=== PATIENT | male | born 1980 | race Caucasian/White ===

== ENCOUNTER 2025-01-16 17:09 | Inpatient (IN) | payer OTHER, BC ==
[~2025-01-16] VITALS: Ht 180.3 cm; Wt 76.2 kg
[2025-01-16] MEDS: ONDANSETRON HCL 4MG/2ML INJ IV ONE (18:04)
[2025-01-16] MEDS: SODIUM CHLORIDE 0.9% 1,000 ML IV ONE (18:04)
[2025-01-16] MEDS: MORPHINE SULFATE 4 MG/ML INJ (FOR IV/IM USE) IV ONE (18:05)
[2025-01-16 18:23] LABS: BASOPHILS % 0.5 % (0.0-2.0); HEMATOCRIT. 35.9 % (42.0-52.0); HEMOGLOBIN. 12.1 g/dL (14.0-18.0); LYMPHOCYTES % 15.8 % (20.0-50.0); MEAN CORPUSCULAR HEMOGLOBIN 29.9 pg (28.0-32.0); MEAN CORPUSCULAR HGB CONC 33.7 g/dL (31.0-37.0); MEAN CORPUSCULAR VOLUME 88.7 fL (80.0-94.0); NEUTROPHILS % 67.7 % (40.0-76.0); PLATELET 460 x1000/uL (130-400); RED BLOOD CELL COUNT 4.05 mill/uL (4.7-6.1); RED CELL DISTRIBUTION WIDTH 12.7 % (11.6-14.6); WHITE BLOOD COUNT 9.1 x1000/uL (4.5-11.0)
[2025-01-16 18:30] LABS: CHLORIDE 104 mEq/L (98-107); POTASSIUM 3.4 mEq/L (3.5-5.1); SODIUM 141 mEq/L (136-145)
[2025-01-16 18:31] LABS: CARBON DIOXIDE 30 mEq/L (21-32)
[2025-01-16 18:32] LABS: CALCIUM 8.5 mg/dL (8.7-10.4)
[2025-01-16 18:36] LABS: GLUCOSE 110 mg/dL (70-105)
[2025-01-16 18:37] LABS: TROPONIN I HIGH SENSITIVITY 18 ng/L (3.0-53); UREA NITROGEN BLOOD 15 mg/dL (9-23)
[2025-01-16 18:38] LABS: ALANINE AMINOTRANSFERASE 30 IU/L (10-49); ALBUMIN 3.8 g/dL (3.2-4.8); ASPARTATE AMINOTRANSFERASE 26 IU/L (<34)
[2025-01-16 18:39] LABS: BILIRUBIN TOTAL 0.2 mg/dL (0.1-1.0); PROTEIN TOTAL 6.3 g/dL (6.0-8.3)
[2025-01-16] MEDS: AMOXICILLIN/POTASSIUM CLAVULANATE 875/125MG TAB PO ONE (20:18)
[2025-01-16] MEDS ORDERED: HYDROMORPHONE HCL/PF 2MG/ML INJ IV ONE (20:30)
[2025-01-16 21:09] LABS: PARTIAL THROMBOPLASTIN TIME 26.8 sec (23.4-31.0); PROTHROMBIN TIME 10.7 sec (9.6-11.0)
[2025-01-16] MEDS ORDERED: ACETAMINOPHEN 325MG TABLET PO PRN ×2 (22:00)
[2025-01-16] MEDS ORDERED: DOCUSATE SODIUM 100MG CAPSULE PO PRN (22:00)
[2025-01-16] MEDS ORDERED: IPRATROPIUM/ALBUTEROL 0.5-3(2.5)MG/3ML NEB HHN PRN (22:00)
[2025-01-16] MEDS ORDERED: CLONIDINE 0.1MG TABLET PO PRN (22:00)
[2025-01-16] MEDS ORDERED: ONDANSETRON HCL 4MG/2ML INJ IV PRN (22:00)
[2025-01-16] MEDS: DOXYCYCLINE HYCLATE 100MG CAPSULE PO ONE (22:13)
[2025-01-16] MEDS: HYDROMORPHONE HCL/PF 1MG/ML INJ IV SCH (22:13)
[2025-01-16] MEDS ORDERED: NALOXONE HCL 0.4MG/ML VIAL IV PRN (22:15)
[2025-01-16] MEDS ORDERED: IOHEXOL-300 100 ML BOTTLE ONE (23:20)
[2025-01-16] MEDS: SODIUM CHLORIDE 0.9% 1,000 ML IV SCH (23:27)
[2025-01-16 23:35] VITALS: BP 113/74; PULSE 91; RESP 19; TEMP 36.5
[2025-01-17 01:23] LABS: CREATINE KINASE 342 IU/L (46-171)
[2025-01-17] MEDS: POTASSIUM CHLORIDE 20MEQ/PACKET PO NR (02:30)
[2025-01-17 05:45] LABS: CHLORIDE 105 mEq/L (98-107); POTASSIUM 4.2 mEq/L (3.5-5.1); SODIUM 138 mEq/L (136-145)
[2025-01-17 05:46] LABS: CALCIUM 8.2 mg/dL (8.7-10.4); CARBON DIOXIDE 28 mEq/L (21-32)
[2025-01-17 05:51] LABS: CREATININE 0.8 mg/dL (0.6-1.3); GLUCOSE 103 mg/dL (70-105); TRIGLYCERIDE 151 mg/dL (0-150); UREA NITROGEN BLOOD 14 mg/dL (9-23)
[2025-01-17 05:52] LABS: BASOPHILS % 0.6 % (0.0-2.0); EOSINOPHILS % 5.9 % (0.0-5.0); HEMATOCRIT. 34.9 % (42.0-52.0); HEMOGLOBIN. 11.7 g/dL (14.0-18.0); LDL CHOLESTEROL 78 mg/dL (5-100); LYMPHOCYTES % 19.1 % (20.0-50.0); MEAN CORPUSCULAR HEMOGLOBIN 30.2 pg (28.0-32.0); MEAN CORPUSCULAR HGB CONC 33.6 g/dL (31.0-37.0); MEAN CORPUSCULAR VOLUME 89.9 fL (80.0-94.0); MEAN PLATELET VOLUME 7.2 fl (7.4-10.4); MONOCYTES % 11.7 % (2.0-8.0); NEUTROPHILS % 62.7 % (40.0-76.0); PLATELET 423 x1000/uL (130-400); RED BLOOD CELL COUNT 3.88 mill/uL (4.7-6.1); RED CELL DISTRIBUTION WIDTH 13.1 % (11.6-14.6); WHITE BLOOD COUNT 9.7 x1000/uL (4.5-11.0)
[2025-01-17 05:53] LABS: CHOLESTEROL 115 mg/dL (<200); CREATINE KINASE 176 IU/L (46-171); HDL CHOLESTEROL 24 mg/dL (>55)
[2025-01-17 05:57] LABS: FERRITIN 114 ng/mL (22-322); FOLIC ACID (FOLATE) SERUM 4.06 ng/mL (>5.38); VITAMIN B12 SERUM 317 pg/mL (211-911)
[2025-01-17 06:57] LABS: IRON 54 ug/dL (65-175)
[2025-01-17 07:00] LABS: TOTAL IRON BINDING CAPACITY 223 ug/dl (250-425)
[2025-01-17 08:00] VITALS: BP 122/81; PULSE 78; RESP 18; TEMP 36.6; O2SAT 98
[2025-01-17] MEDS: DOXYCYCLINE HYCLATE 100MG CAPSULE PO SCH (09:05)
[2025-01-17 12:20] VITALS: BP 136/85; PULSE 78; RESP 18; TEMP 36.4; O2SAT 98
[2025-01-17] MEDS: HYDROCODONE/ACETAMINOPHEN 5/325MG TABLET PO PRN (13:25)
[2025-01-17 16:00] VITALS: BP 119/78; PULSE 76; RESP 18; TEMP 36.7; O2SAT 98
[2025-01-17] MEDS: NEOMYCIN-POLYMYXIN-HYDROCORTISONE 1% OTIC SUSP 10ML RIGHT EAR SCH (18:00)
[2025-01-17] MEDS: FOLIC ACID 1MG TABLET PO SCH (18:55)
[2025-01-17] MEDS: FERROUS SULFATE 300MG/5ML UDC PO SCH (18:55)
[2025-01-17 20:00] VITALS: BP 137/85; PULSE 87; RESP 16; TEMP 36.5; O2SAT 96
[2025-01-17] MEDS ORDERED: ATORVASTATIN CALCIUM 20MG TABLET PO SCH (21:00)
[2025-01-17] MEDS: GUAIFENESIN 200MG/10ML SUGAR FREE UDC PO PRN (23:28)
[2025-01-18] VITALS: BP 126/79; PULSE 79; RESP 18; TEMP 36.3; O2SAT 95
[2025-01-18 04:00] VITALS: BP 134/92; PULSE 78; RESP 16; TEMP 36.4; O2SAT 96
[2025-01-18 07:03] LABS: HEMATOCRIT 36.8 % (42.0-52.0); HEMOGLOBIN 12.6 g/dL (14.0-18.0); MEAN CORPUSCULAR HGB CONC 34.1 g/dL (31.0-37.0); MEAN CORPUSCULAR VOLUME 87.8 fL (80.0-94.0); PLATELET 417 x1000/uL (130-400); RED CELL DISTRIBUTION WIDTH 12.8 % (11.6-14.6); WHITE BLOOD COUNT 9.7 x1000/uL (4.5-11.0)
[2025-01-18 07:07] LABS: CHLORIDE 102 mEq/L (98-107); POTASSIUM 3.9 mEq/L (3.5-5.1); SODIUM 138 mEq/L (136-145)
[2025-01-18 07:08] LABS: CALCIUM 8.6 mg/dL (8.7-10.4); CARBON DIOXIDE 28 mEq/L (21-32)
[2025-01-18 07:13] LABS: CREATININE 0.8 mg/dL (0.6-1.3); GLUCOSE 115 mg/dL (70-105); UREA NITROGEN BLOOD 13 mg/dL (9-23)
[2025-01-18 08:00] VITALS: BP 126/78; PULSE 76; RESP 20; TEMP 36.6; O2SAT 98
[2025-01-18] MEDS: PANTOPRAZOLE SODIUM 40 MG/VIAL IV SCH (10:13)
[2025-01-18 12:00] VITALS: PULSE 70; RESP 20; TEMP 36.6; O2SAT 99
[2025-01-18 16:00] VITALS: BP 121/76; PULSE 79; RESP 20; TEMP 36.7; O2SAT 96
[2025-01-18 20:00] VITALS: BP 111/75; PULSE 78; RESP 18; TEMP 36.7; O2SAT 100
[2025-01-19] VITALS: BP 119/65; PULSE 92; RESP 18; TEMP 36.8; O2SAT 100
[2025-01-19 04:00] VITALS: BP 118/80; PULSE 80; RESP 18; TEMP 36.8; O2SAT 99
[2025-01-19 07:05] LABS: HEMATOCRIT 37.1 % (42.0-52.0); HEMOGLOBIN 12.9 g/dL (14.0-18.0); MEAN CORPUSCULAR HEMOGLOBIN 30.5 pg (28.0-32.0); MEAN CORPUSCULAR HGB CONC 34.8 g/dL (31.0-37.0); MEAN CORPUSCULAR VOLUME 87.6 fL (80.0-94.0); PLATELET 494 x1000/uL (130-400); RED BLOOD CELL COUNT 4.24 mill/uL (4.7-6.1); RED CELL DISTRIBUTION WIDTH 12.6 % (11.6-14.6); WHITE BLOOD COUNT 10.5 x1000/uL (4.5-11.0)
[2025-01-19 07:07] LABS: CHLORIDE 100 mEq/L (98-107); POTASSIUM 4.4 mEq/L (3.5-5.1); SODIUM 136 mEq/L (136-145)
[2025-01-19 07:08] LABS: CALCIUM 8.8 mg/dL (8.7-10.4); CARBON DIOXIDE 28 mEq/L (21-32)
[2025-01-19 07:13] LABS: CREATININE 0.9 mg/dL (0.6-1.3); GLUCOSE 93 mg/dL (70-105); UREA NITROGEN BLOOD 14 mg/dL (9-23)
[2025-01-19] MEDS ORDERED: MUPIROCIN 2% OINT 22GM NS SCH (12:00)
[2025-01-19 12:21] VITALS: RESP 18
[2025-01-19 13:00] VITALS: BP 129/83; PULSE 72; TEMP 97.8; O2SAT 100
== END 2025-01-19 13:49 | disposition home or self-care (01) | DRG 65 ==
LOC: ER 17:09 → EDBEDREQTM 21:22 → EDBEDREQ 21:22 → ENRESERV 21:40 → 5WST 22:41
PROVIDERS: ADMIT Internal Medicine; ATTEND Internal Medicine
DX: I63.9 Cerebral infarction, unspecified (principal); Z59.00 Homelessness unspecified; S42.001A Fracture of unspecified part of right clavicle, initial encounter for closed fracture; E83.51 Hypocalcemia; D64.9 Anemia, unspecified; E78.5 Hyperlipidemia, unspecified; E87.6 Hypokalemia; H66.91 Otitis media, unspecified, right ear; D75.839 Thrombocytosis, unspecified; Z20.822 Contact with and (suspected) exposure to COVID-19; E83.52 Hypercalcemia; S60.512A Abrasion of left hand, initial encounter; S60.511A Abrasion of right hand, initial encounter; S80.212A Abrasion, left knee, initial encounter; S80.211A Abrasion, right knee, initial encounter; S00.212A Abrasion of left eyelid and periocular area, initial encounter; S00.211A Abrasion of right eyelid and periocular area, initial encounter; V29.99XA Rider (driver) (passenger) of other motorcycle injured in unspecified traffic accident, initial encounter; V89.2XXA Person injured in unspecified motor-vehicle accident, traffic, initial encounter; Y93.89 Activity, other specified; Y92.89 Other specified places as the place of occurrence of the external cause; Z88.0 Allergy status to penicillin; Y99.8 Other external cause status
CPT/HCPCS: 36415; 70486; 71045; 71260; 73000; 74177; 80048; 80053; 80061; 80320; 82550; 82607; 82728; 82746; 83540; 83550; 83735; 84439; 84443; 84484; 85025; 85027; 86705; 86850; 86900; 87426; 93005; 93970; 96374; 96375; 97110; 97162; 97166; 97530; 99285; A4565; A4606; J1171; J2270; J2405; J2470; J7030; Q9967; G0480